=== PATIENT | male | born 1960 | race Caucasian/White ===

== ENCOUNTER 2019-01-25 09:27 | Emergency (ER) | payer OTHER ==
[2019-01-25 09:39] VITALS: BP 160/94; PULSE 73; O2SAT 96
[2019-01-25] MEDS ORDERED: TENIVAC VIAL IM ONE ×2 (09:44→09:53)
--- NOTE | 2019-01-25 10:02 | ERPHSYRPT ---
- History of Present Illness Time Seen by Provider: 01/25/19 09:45 Source: patient Exam Limitations: no limitations Patient Subjective Stated Complaint: working on some farm equipment a piece come flying out and hit patien above the left brow causing a 2.5 cm laceration, not bleeding, denies pain Triage Nursing Assessment: Pt walked into the ER, hypertensive, denies losing conciousness, doesn't appear to be in any distress, Physician History: piece slipped out of vice with force and flew up and hit him above the left eyebrow. No loss of consciousness - no other injuries. Last tetanus shot about 7 years ago. No other medical issues; is slowly bringing his blood sugar under better control per family. Quality: painful Severity: mild Location: face (above left eyebrow) Possible Causes: other (foreign body - machine equipment - hit forehead) Allergies/Adverse Reactions: No Known Drug Allergies Allergy (Verified 01/25/19 09:39) Home Medications: Aspirin 81 gm Chew [Baby Aspirin 81 mg Chew] 81 mg PO DAILY 04/06/13 [ History] Glipizide 10 mg [Glucotrol 10 MG] 10 mg PO BID 04/06/13 [History] Metformin HCl 1000 mg [Glucophage 1000 MG] 1,000 mg PO BID 04/06/13 [History] [place]-3/Dha/Epa/Fish Oil [Fish Oil] 500 mg PO DAILY 04/06/13 [History] Phenobarb 32.4 mg [Phenobarbital 32.4 mg] 64.8 mg PO BID 04/06/13 [History ] Phenytoin Sod Extended 100 mg* [Dilantin 100 MG] 200 mg PO BID 04/06/13 [ History] Pravastatin Sodium 10 mg [Pravachol 10 MG] 10 mg PO DAILY 04/06/13 [History] Spironolactone 25 mg [Aldactone 25 MG] 25 mg PO DAILY 04/06/13 [History] Benazepril HCl [Lotensin] 20 mg PO DAILY 01/25/19 [History] Insulin Glargine,Hum.rec.anlog [Lantus Solostar] 50 units SQ DAILY 01/25/19 [ History] Metoprolol Tartrate 50 mg [Lopressor 50 MG] 50 mg PO BID 01/25/19 [History ] Montelukast Sodium 10 mg [Singulair 10 MG] 10 mg PO DAILY 01/25/19 [History] Multivitamin [Multivitamins] 1 each PO DAILY 01/25/19 [History] Vitamin B Complex [B Complex] 1 each PO DAILY 01/25/19 [History] Hx Tetanus, Diphtheria Vaccination/Date Given: No (Done in ER today) Hx Influenza Vaccination/Date Given: No Hx Pneumococcal Vaccination/Date Given: No - Review of Systems Constitutional: No Symptoms Eyes: No Symptoms - Past Medical History Pertinent Past Medical History: Yes Neurological History: Epilepsy Cardiac History: High Cholesterol, Hypertension Endocrine Medical History: Diabetes Type II - Past Surgical History Past Surgical History: Yes Other Surgical History: FINGER - Social History Smoking Status: Never smoker Exposure to second hand smoke: No Drug Use: none Patient Lives Alone: No - Nursing Vital Signs Nursing Vital Signs: Initial Vital Signs Temperature 97.7 F 01/25/19 09:32 Pulse Rate 73 01/25/19 09:32 Blood Pressure 160/94 01/25/19 09:32 O2 Sat by Pulse Oximetry 96 01/25/19 09:32 Pain Scale Pain Intensity 0 - Physical Exam General Appearance: no apparent distress Eye Exam: PERRL/EOMI Ears, Nose, Throat Exam: pharynx normal, moist mucous membranes Neck Exam: normal inspection, non-tender, supple Respiratory Exam: normal breath sounds, chest tenderness, lungs clear, airway intact Cardiovascular Exam: regular rate/rhythm, normal heart sounds, normal peripheral pulses Neurologic Exam: alert, oriented x 3, cooperative Skin Exam: normal color, warm, dry SpO2 Interpretation: normal SpO2: 96 O2 Delivery: Room Air Procedures - Laceration/Wound Repair Frontal Wound Location: Left, forehead Wound Length (cm): 2.5 Wound's Depth, Shape: irregular Wound Explored: clean Irrigated: Yes Hibiclens Prep: Yes Wound Repaired With: Steri-strips (by RN), Dermabond Progress: 01/25/19 10:14 Repair inspected by MD following closure with dermabond and steristrip; patient voiced satisfaction with the procedure. Ordered Tests: Medication Summary Discontinued Medications Generic Name Dose Route Start Last Admin Trade Name Freq PRN Reason Stop Dose Admin Tetanus/Diphtheria Toxoids Adsorbed 0.5 ml 01/25/19 09:44 01/25/19 09:55 Tenivac Vial IM 01/25/19 09:45 0.5 ml .ONCE ONE Administration Tetanus/Diphtheria Toxoids Adsorbed Confirm 01/25/19 09:53 Tenivac Vial Administered 01/25/19 09:54 Dose 0.5 ml IM .STK-MED ONE - Departure Departure Disposition: Home Clinical Impression: Laceration of forehead without complication Condition: Stable Critical Care Time: No Referrals: SO MI MD [Primary Care Provider] - Additional Instructions: Tylenol or Ibuprofen for discomfort as needed. Keep clean - do not wash area until at least tomorrow night.
== END 2019-01-25 10:16 | disposition home or self-care (01) ==
LOC: ED 09:27
DX: S01.81XA Laceration without foreign body of other part of head, initial encounter (principal); W30.9XXA Contact with unspecified agricultural machinery, initial encounter; Y93.89 Activity, other specified; Y92.79 Other farm location as the place of occurrence of the external cause
CPT/HCPCS: 12011; 90471; 90714; 99283